=== PATIENT | male | born 1990 | race Caucasian/White ===

== ENCOUNTER 2020-10-21 00:01 | Emergency (ER) | payer OTHER ==
[~2020-10-21 00:01] MED LIST: ACULAR 0.5%3 ML OPH; ADDERALL XR 3030 MG PO; ADDERALL20 MG PO; ADDERALL30 MG PO; AMOXICILLIN500 M2 PO; CILOXAN 5 ML5 ML OPH; KEFLEX500 MG PO; MOTRIN800 MG PO; Motrin,Rufen800 MG PO; Orphenadrine C100 MG PO; PREDNISONE20 M1 PO; SEPTRA DS 800 M1 TAB PO; ULTRAM50 MG PO; ZYRTEC10 MG PO
== END 2020-10-21 00:33 | disposition left against medical advice (07) ==
LOC: ED 00:01
DX: M79.603 Pain in arm, unspecified (principal); Z53.21 Procedure and treatment not carried out due to patient leaving prior to being seen by health care provider; X58.XXXA Exposure to other specified factors, initial encounter; Y93.89 Activity, other specified; Y92.89 Other specified places as the place of occurrence of the external cause; Y99.8 Other external cause status

== ENCOUNTER 2024-03-13 17:18 | Emergency (ER) | payer OTHER ==
[~2024-03-13] VITALS: Ht 177.8 cm; Wt 81.6 kg
[2024-03-13 17:44] VITALS: BP 113/64
[2024-03-13] MEDS ORDERED: Lidocaine Hydrochloride 2% 10 ML AMP SC ONE (17:55)
[2024-03-13] MEDS ORDERED: Bacitracin Zinc 14 GM TUBE T ONE (17:55)
[2024-03-13] MEDS ORDERED: Tdap Vaccine 0.5 ML SYR (Adult Vaccine) IM ONE (17:55)
[2024-03-13] MEDS ORDERED: CEPHALEXIN500 M1 PO (18:43)
== END 2024-03-13 19:00 | disposition home or self-care (01) ==
LOC: ED 17:18
DX: S61.411A Laceration without foreign body of right hand, initial encounter (principal); F90.9 Attention-deficit hyperactivity disorder, unspecified type; W22.8XXA Striking against or struck by other objects, initial encounter; Y93.89 Activity, other specified; Y92.89 Other specified places as the place of occurrence of the external cause; Y99.0 Civilian activity done for income or pay